=== PATIENT | male | born 1935 | race Two or more races ===

== ENCOUNTER 2016-09-08 13:32 | Emergency (ER) | payer OTHER ==
[~2016-09-08] VITALS: Ht 177.8 cm; Wt 90.7 kg
[~2016-09-08 13:32] MED LIST: ASPI81CH43 PO; CARV3.1240 PO; CHOL20007 OR; ENAL-3 PO; FURO20TA3 PO; INSLANTI SC; INSUINJ49 SC; POTA-167 PO; WARF5TAB71 PO
[2016-09-08 15:15] LABS: Basophils # (auto) 0 uL; Basophils % (auto) 0.8 % (0.0-2.0); Eosinophils # (auto) 0.2 uL; Eosinophils % (auto) 3.2 % (0.0-7.0); Hematocrit 37.2 % (41.0-53.0); Hemoglobin 11.9 g/dL (13.5-17.5); Lymphocytes # (auto) 0.6 uL; Lymphocytes % (auto) 11.8 % (10.0-50.0); Mean Corpuscular Hemoglobin 29.3 pg (28.0-32.0); Mean Corpuscular Hgb Conc. 32.1 g/dL (32.0-36.0); Mean Corpuscular Volume 91.2 fL (80.0-100.0); Mean Platelet Volume 9.8 fL (7.4-10.4); Monocytes # (auto) 0.6 uL; Monocytes % (auto) 11.8 % (0.0-12.0); Neutrophils # (auto) 3.9 uL; Neutrophils % (auto) 72.4 % (37.0-80.0); Platelet Count (auto) 145 10^3/uL (140-450); Red Cell Distribution Width 15.8 % (11.6-16.0); White Blood Cell 5.4 10^3/uL (4.4-10.8)
[2016-09-08 15:42] LABS: BUN/Creatinine Ratio 26.6; Bilirubin, Total 1.6 mg/dL (0.2-1.0); Calcium 9.5 mg/dL (8.5-10.1); Potassium 4.4 mmol/L (3.5-5.1); Total Protein 8.6 g/dL (6.4-8.2)
[2016-09-08 16:59] LABS: B-Type Natriuretic Peptide 934.62 pg/mL (0-100); Temperature: 21.9 C (20.0-25.0)
[2016-09-08] MEDS ORDERED: DONNATAL 5ml ORAL Elix (BELLADONNA ALK-PHENOBARB) PO ONE (17:00)
[2016-09-08] MEDS ORDERED: LIDOCAINE VISCOUS 2% 15ML UD MT ONE (17:00)
[2016-09-08] MEDS ORDERED: FUROSEMIDE 40 MG/4 ML VIAL IV ONE (17:00)
[2016-09-08] MEDS ORDERED: ALUM & MAG HYDROX-SIMETH LIQ(MAALOX) 30 ML PO ONE (17:00)
[2016-09-08 17:40] VITALS: BP 140/82
== END 2016-09-08 19:39 | disposition home or self-care (01) ==
LOC: EDBD 13:32 → ER 13:40
DX: I13.0 Hypertensive heart and chronic kidney disease with heart failure and stage 1 through stage 4 chronic kidney disease, or unspecified chronic kidney disease (principal); N18.9 Chronic kidney disease, unspecified; I50.31 Acute diastolic (congestive) heart failure; K29.70 Gastritis, unspecified, without bleeding; E11.22 Type 2 diabetes mellitus with diabetic chronic kidney disease; I25.10 Atherosclerotic heart disease of native coronary artery without angina pectoris; Z88.6 Allergy status to analgesic agent; Z88.8 Allergy status to other drugs, medicaments and biological substances; Z79.4 Long term (current) use of insulin
CPT/HCPCS: 36415; 71020; 74176; 80053; 83690; 83880; 84484; 85025; 85049; 93005